=== PATIENT | female | born 1960 | race Caucasian/White ===

== ENCOUNTER → 2024-09-30 | Outpatient (CLI) | payer MEDICARE ==
--- NOTE | 2024-09-30 16:18 | HMCIMG ---
MR SHOULDER LEFT WO REASON: M75.100 Unspecified rotator cuff tear or rupture of unspecified shoulder, n COMPARISON: None TECHNIQUE: Routine imaging protocol was performed in the axial, oblique sagittal and oblique coronal plane with T1, proton density, T2 and gradient recalled sequences. FINDINGS: There are AC joint degenerative changes. There is a small broad-based inferiorly directed osteophyte causing indentation on the underlying supraspinatus muscle. This can result in impingement syndrome in the appropriate clinical setting. There is increased signal in the rotator cuff tendon immediately after the insertion. This appears most consistent with tendinosis or tendinitis. There is no evidence of a full-thickness tear. There is no distracted tear. Glenohumeral joint space appears preserved. Biceps tendon appears unremarkable. Surrounding muscles appear normal. There is no joint effusion. There are no focal osseous lesions. IMPRESSION: 1. AC joint degenerative changes with a small inferiorly directed osteophyte, this can result in impingement in the appropriate clinical setting. 2. Focal increased signal in the rotator cuff at the insertion with mild thickening consistent with tendinosis or tendinitis.
== END | disposition home or self-care (01) ==
LOC: RAH 15:10
PROVIDERS: ATTEND Orthopaedic Surgery
DX: M75.102 Unspecified rotator cuff tear or rupture of left shoulder, not specified as traumatic (principal); M19.012 Primary osteoarthritis, left shoulder; M25.712 Osteophyte, left shoulder; M25.812 Other specified joint disorders, left shoulder
CPT/HCPCS: 73221